=== PATIENT | male | born 1945 | race Caucasian/White ===

== ENCOUNTER → 2020-11-03 | Outpatient (CLI) | payer OTHER ==
--- NOTE | 2020-11-05 02:22 | ECWPNPC ---
PATIENT NAME: KAYLIN GARNER : 1945 GENDER: MALE VISIT DATE: 11/03/2020 DISCHARGE DATE: 11/03/20 09 VISIT LOCKED DATE TIME: PHYSICIAN: TOOTIE CHRISTINE RESOURCE: TOOTIE CHRISTINE REASON FOR APPOINTMENT 1. W/C LOW BACK HISTORY OF PRESENT ILLNESS GENERAL: - 75-YEAR-OLD MALE IN FOR WORKER'S COMP. CHRONIC PAIN FOLLOW-UP. PATIENT RATES HIS PAIN CURRENTLY AT A 3 OUT OF 10 AND DESCRIBES IT ACHING. HE FEELS MEDICATIONS ARE HELPFUL THEY AID IN DECREASED PAIN AND INCREASED FUNCTIONALITY AND DENIES MED SIDE EFFECTS AT THIS TIME. THE PATIENT WAS HURT IN A WORK RELATED INJURY ON 08/12/1999 WHILE WORKING AT [employer]. HE TRIPPED OVER A BOARD AND FELL DOWN STAIRS, WHICH RESULTED IN A BACK INJURY. FALL RISK SCREENING: SCREENING : NO FALLS REPORTED IN THE LAST YEAR. PAIN SCREENING: PATIENT HAS A COMPLAINT OF ACUTE OR CHRONIC PAIN :YES LOCATION OF PAIN:LOW BACK INTENSITY OF PAIN (SCALE OF 1 TO 10):3 WHAT DOES YOUR PAIN FEEL LIKE:ACHING DURATION:INTERMITTENT PAIN IS INCREASED BY:ACTIVITIES PAIN IS DECREASED BY:USE OF PAIN MEDICATIONS NURSING NOTE: -. PAIN CENTER INTAKE QUESTIONS: DO YOU HAVE A HISTORY OF MRSA? :NO DO YOU TAKE A BLOOD THINNERS? :NO DO YOU HAVE ANY BLEEDING DISORDERS? :NO ANY NEW NUMBNESS OR WEAKNESS IN YOUR LEGS OR ARMS? :NO ANY PACEMAKER,DEFIBRILLATOR, OR DORSAL COLUMN STIMULATOR? :NO DO YOU HAVE ANY RASHES OR OPEN SORES? :NO ARE YOU ALLERGIC TO IV DYE? :NO ARE YOU DIABETIC? :YES ANY NEW PROBLEMS WITH YOUR MEDICATIONS? :NO HAVE YOU RECEIVED A VACCINE IN THE PAST 30 DAYS? :NO DO YOU PLAN TO RECEIVE A VACCINE IN THE NEXT 21 DAYS? :NO DO YOU NEED ANY PRESCRIPTION? :YES HYDROCODONE DO YOU TAKE ANY IMMUNOSUPPRESSIVE MEDICATIONS? :NO DO YOU HAVE ANY KIDNEY OR LIVER DISEASE? :NO IS THERE A CHANCE YOU COULD BE ? :NO ARE YOU BREAST FEEDING? :NO CURRENT MEDICATIONS TAKING TIZANIDINE HCL 2 MG TABLET 1 TABLET NEEDED ORALLY TWO TIMES PRN TAKING HYDROCODONE-ACETAMINOPHEN 7.5-325 MG TABLET 1 TABLET NEEDED ORALLY EVERY 8 HOURS NEEDED MDD3 UNKNOWN SIMVASTATIN 20 MG TABLET 1 TABLET IN THE EVENING ORALLY ONCE A DAY, NOTES: 08/08 1929 UNKNOWN POTASSIUM CHLORIDE 10 MEQ CAPSULE EXTENDED RELEASE 1 CAPSULE WITH FOOD ORALLY ONCE A DAY, NOTES: 08/09 729 UNKNOWN NOVOLIN 70/30 (70-30) 100 UNIT/ML SUSPENSION SUBCUTANEOUS 30 UNITS- AM 20UNITS-PM, NOTES: 20 UNITS 08/08 1929 UNKNOWN METFORMIN HCL 500 MG TABLET 1 TABLET WITH A MEAL ORALLY TWICE DAILY, NOTES: 08/08 1929 UNKNOWN ALLOPURINOL 100 MG TABLET 1 TABLET ORALLY ONCE A DAY, NOTES: 08/03/20 UNKNOWN LABETALOL HCL 200 MG TABLET 1 TABLET ORALLY TWICE A DAY, NOTES: 08/09 729 UNKNOWN LOSARTAN POTASSIUM-HCTZ 100-12.5 MG TABLET 1 TABLET ORALLY ONCE A DAY UNKNOWN ASPIRIN 81 81 MG TABLET CHEWABLE 1 TABLET ORALLY ONCE A DAY UNKNOWN FAMOTIDINE 20 MG TABLET 1 TAB ORALLY ONCE A DAY UNKNOWN LORATADINE 10 MG TABLET 1 TABLET ORALLY ONCE A DAY UNKNOWN FISH OIL OMEGA-3 1000 MG CAPSULE 1 CAPSULE ORALLY ONCE A DAY UNKNOWN D3 VITAMIN _ LIQUID 400 UNITS 1 GEL CAP ORALLY BID UNKNOWN [id number] - TABLET 1 TAB ORALLY DAILY MEDICATION LIST REVIEWED AND RECONCILED WITH THE PATIENT PAST MEDICAL HISTORY A[facility]D HTN DIABETES HYPERLIPIDEMIA CHRONIC PAIN ALLERGIES DUST MITE MIXED ALLERGEN EXT: SNEEZING, SINUS CONGESTION - ALLERGY SOCIAL HISTORY GENERAL: TOBACCO USE ARE YOU A:USES TOBACCO IN OTHER FORMS ADDITIONAL FINDINGS: TOBACCO USERCHEWS FINE CUT TOBACCO VAPORNO E-CIGARETTENO SMOKING CESSATION INFORMATION GIVEN08/23/2020 LATEX QUESTIONNAIRE LATEX ALLERGY : HAVE YOU EVER DEVELOPED ANY TYPE OF REACTION AFTER HANDLING LATEX PRODUCTS SUCH RUBBER GLOVES, CONDOMS, DIAPHRAGMS, BALLOONS, SOCKS, OR UNDERWEAR?NO LATEX ALLERGY : HAVE YOU EVER DEVELOPED ANY TYPE OF REACTION DURING OR AFTER DENTAL APPOINTMENT, VAGINAL/RECTAL EXAMINATION, SURGICAL PROCEDURE, OR ANY OTHER EXPOSURE?NO DATE ASKED : 08/23/2020 LATEX RISK : HAVE YOU EVER HAD ANY DIFFICULTY BREATHING OR HIVES AFTER EATING OR HANDLING ANY FRUITS, OR VEGETABLES; SUCH KIWI, BANANAS, STONE FRUITS, OR CHESTNUTSNO LATEX RISK : DO YOU HAVE A PREVIOUS PERSONAL HISTORY OF MORE THAN NINE SURGERIES, SPINA BIFIDA, OR REPEATED CATHERIZATIONS? NO LATEX RISK : ARE YOU FREQUENTLY EXPOSED TO LATEX PRODUCTS IN YOUR OCCUPATION?NO ALCOHOL SCREENING DID YOU HAVE A DRINK CONTAINING ALCOHOL IN THE PAST YEAR?NO POINTS0 INTERPRETATIONNEGATIVE RECREATIONAL DRUG USE DRUG USE?NO CAFFEINE CAFFEINE USE?YES HOW OFTEN AND HOW MUCH? 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 DIET: NO CONCENTRATED SWEETS., REGULAR. EXERCISE: WALKS. MARITAL STATUS: . - HAS THE PATIENT BEEN EDUCATED REGARDING HIS/HER PLAN OF CARE?YES HAS THE PATIENT BEEN EDUCATED REGARDING PAIN, THE RISK FOR PAIN, THE IMPORTANCE OF EFFECTIVE PAIN MANAGEMENT, AND THE PAIN ASSESSMENT PROCESS?YES ADVANCE DIRECTIVE ADVANCE DIRECTIVE DISCUSSED WITH PATIENT:YES HCP IS DESMOND GARNER. [phone] REVIEW OF SYSTEMS CONSTITUTIONAL: ANY RECENT FEVER NO . CHILLS NO . WEIGHT CHANGE OF UNKNOWN REASONS NO . GASTROENTEROLOGY: NEW UNEXPLAINABLE CHANGES IN BOWEL CONTROL NO . CONSTIPATION NO . GENITOURINARY: ANY NEW CHANGE IN BLADDER CONTROL? NO . NEUROLOGY: NEW ONSET DIZZINESS OR NEUROLOGICAL CHANGES NOT MENTIONED NO . NEW NUMBNESS OR PAIN PATTERNS NOT MENTIONED AND PERTINENT TO TODAY'S VISIT NO . CARDIOLOGY: NEW CHEST PRESSURE NO . PATIENT DENIES NO . RESPIRATORY: UNEXPLAINABLE COUGH NO . NEW SHORTNESS OF BREATH NO . VITAL SIGNS WT 228 LBS, HT 68 IN, BMI 34.66 INDEX, BP 159/68 MM HG, HR 65 /MIN, RR 18 /MIN, TEMP 98.2 F, OXYGEN SAT % 96, SAFE IN ENV? (Y/N) Y, REVIEWED BY: EM. EXAMINATION GENERAL EXAMINATION: GENERALNO ACUTE DISTRESS, WELL NOURISHED AND HYDRATED. PSYCHAPPROPRIATE MOOD AND AFFECT . LUNGS:CLEAR TO AUSCULTATION BILATERALLY, NO WHEEZES, RHONCHI, RALES. HEART:NO MURMURS, REGULAR RATE AND RHYTHM. ASSESSMENTS SPONDYLOSIS WITHOUT MYELOPATHY OR RADICULOPATHY, LUMBAR REGION - M47.816 (PRIMARY), RISK: (NULL) TREATMENT SPONDYLOSIS WITHOUT MYELOPATHY OR RADICULOPATHY, LUMBAR REGION CONTINUE TIZANIDINE HCL TABLET, 2 MG, 1 TABLET NEEDED, ORALLY, TWO TIMES PRN, 30 DAY(S), 60 REFILL HYDROCODONE-ACETAMINOPHEN TABLET, 7.5-325 MG, 1 TABLET NEEDED, ORALLY, EVERY 8 HOURS NEEDED MDD3, 30 DAY(S), 90, REFILLS 0 NOTES: 75-YEAR-OLD MALE IN FOR WORKER'S COMP. CHRONIC PAIN FOLLOW-UP. GIVEN PRESENTING SYMPTOMS RECOMMENDED CONTINUATION OF CURRENT MEDICATION REGIMEN WITH FOLLOW-UP IN 2 MONTHS. PATIENT HAS EXPRESSED UNDERSTANDING OF AND WAS IN A AGREEMENT WITH TREATMENT PLAN. GIVEN TIME TO ASK QUESTIONS AND EXPRESS CONCERNS. , ISTOP REGISTRY REVIEWED AND DEMONSTRATES COMPLLIANCE. (REF # [id number] ) BRINGS IN MEDICATIONS WHICH IS APPROPRIATE FOR WHAT WAS DISPENSED. RECENT URINE TOXICOLOGY REVIEWED. NO UNAUTHORIZED MEDICATIONS. NO ILLICIT SUBSTANCES AND PRESCRIBED MEDICATIONS WERE PRESENT. PROCEDURES PN WORKMANS' COMP OPINION IN YOUR OPINION, WAS THE INCIDENT THAT THE PATIENT DESCRIBED THE COMPETENT MEDICAL CAUSE OF THIS INJURY/ILLNESS? YES ARE THE PATIENT'S COMPLAINTS CONSISTENT WITH HIS/HER HISTORY OF THE INJURY/ILLNESS? YES IS THE PATIENT'S HISTORY OF THE INJURY/ILLNESS CONSISTENT WITH YOUR OBJECTIVE FINDING? YES WHAT IS THE PERCENTAGE OF TEMPORARY IMPAIRMENT? MODERATE TO MARKED = 66.7% IS THE PATIENT WORKING? NO DOCTOR ON SITE: DAJUAN ROSADO MD PROCEDURE CODES FA211 ESTABILISHED PATIENT [facility] CHARGE DISPOSITION & COMMUNICATION FOLLOW UP 2 MONTHS (REASON: W/C LOW BACK PAIN ) ELECTRONICALLY SIGNED BY REID BECKER ON 11/04/2020 AT 08:41 AM EDT DISCLAIMER : THIS IS A VISIT SUMMARY EXTRACTED FROM THE [employer] CHART. IT IS NOT A COPY OF THE [employer] PROGRESS NOTE. MTDD
== END ==
LOC: M PAIN 09:15
PROVIDERS: ATTEND Family Medicine
DX: M47.816 Spondylosis without myelopathy or radiculopathy, lumbar region (principal); G89.29 Other chronic pain; E11.9 Type 2 diabetes mellitus without complications; F17.220 Nicotine dependence, chewing tobacco, uncomplicated; Z79.899 Other long term (current) drug therapy

== ENCOUNTER → 2020-12-31 | Outpatient (CLI) | payer OTHER ==
--- NOTE | 2021-01-05 03:08 | ECWPNPC ---
PATIENT NAME: KAYLIN GARNER : 1945 GENDER: MALE VISIT DATE: 12/31/2020 DISCHARGE DATE: 12/31/20 1049 VISIT LOCKED DATE TIME: PHYSICIAN: TOOTIE CHRISTINE RESOURCE: TOOTIE CHRISTINE REASON FOR APPOINTMENT 1. W/C LOW BACK HISTORY OF PRESENT ILLNESS GENERAL: HPI 75-YEAR-OLD MALE IN FOR WORKER'S COMP. CHRONIC PAIN FOLLOW-UP. HE RATES HIS PAIN CURRENTLY AT AN 8 OUT OF 10 AND DESCRIBES IT ACHING, AND INTERMITTENT. HE FEELS MEDICATIONS ARE HELPFUL AND DENIES MED SIDE EFFECTS AT THIS TIME. MEDICATIONS ARE HELPFUL BECAUSE THEY DECREASE HIS PAIN AND INCREASE HIS FUNCTIONALITY. DOI: 08/12/1999. -. FALL RISK SCREENING: SCREENING : NO FALLS REPORTED IN THE LAST YEAR. PAIN SCREENING: PATIENT HAS A COMPLAINT OF ACUTE OR CHRONIC PAIN :YES LOCATION OF PAIN:LOW BACK, LEFT HIP, RIGHT HIP INTENSITY OF PAIN (SCALE OF 1 TO 10):8 WHAT DOES YOUR PAIN FEEL LIKE:ACHING, INTERMITTENT DURATION:INTERMITTENT PAIN IS INCREASED BY:ACTIVITIES, PROLONGED STANDING PAIN IS DECREASED BY:USE OF PAIN MEDICATIONS, SITTING NURSING NOTE: -. PAIN CENTER INTAKE QUESTIONS: DO YOU HAVE A HISTORY OF MRSA? :NO DO YOU TAKE A BLOOD THINNERS? :NO DO YOU HAVE ANY BLEEDING DISORDERS? :NO ANY NEW NUMBNESS OR WEAKNESS IN YOUR LEGS OR ARMS? :NO ANY PACEMAKER,DEFIBRILLATOR, OR DORSAL COLUMN STIMULATOR? :NO DO YOU HAVE ANY RASHES OR OPEN SORES? :YES SORES ON ARMS FROM GARDENING ARE YOU ALLERGIC TO IV DYE? :NO ARE YOU DIABETIC? :YES ANY NEW PROBLEMS WITH YOUR MEDICATIONS? :NO HAVE YOU RECEIVED A VACCINE IN THE PAST 30 DAYS? :NO DO YOU PLAN TO RECEIVE A VACCINE IN THE NEXT 21 DAYS? :NO DO YOU NEED ANY PRESCRIPTION? :YES HYDROCODONE DO YOU TAKE ANY IMMUNOSUPPRESSIVE MEDICATIONS? :YES ALLOPURINAL DO YOU HAVE ANY KIDNEY OR LIVER DISEASE? :NO IS THERE A CHANCE YOU COULD BE ? :NO ARE YOU BREAST FEEDING? :NO CURRENT MEDICATIONS TAKING HYDROCODONE-ACETAMINOPHEN 7.5-325 MG TABLET 1 TABLET NEEDED ORALLY EVERY 8 HOURS NEEDED MDD3 TAKING TIZANIDINE HCL 2 MG TABLET 1 TABLET NEEDED ORALLY TWO TIMES PRN TAKING SIMVASTATIN 20 MG TABLET 1 TABLET IN THE EVENING ORALLY ONCE A DAY TAKING POTASSIUM CHLORIDE 10 MEQ CAPSULE EXTENDED RELEASE 1 CAPSULE WITH FOOD ORALLY ONCE A DAY TAKING NOVOLIN 70/30 (70-30) 100 UNIT/ML SUSPENSION SUBCUTANEOUS 30 UNITS- AM 20UNITS-PM TAKING METFORMIN HCL 500 MG TABLET 1 TABLET WITH A MEAL ORALLY TWICE DAILY TAKING ALLOPURINOL 100 MG TABLET 1 TABLET ORALLY ONCE A DAY TAKING LABETALOL HCL 200 MG TABLET 1 TABLET ORALLY TWICE A DAY TAKING LOSARTAN POTASSIUM-HCTZ 100-12.5 MG TABLET 1 TABLET ORALLY ONCE A DAY TAKING ASPIRIN 81 81 MG TABLET CHEWABLE 1 TABLET ORALLY ONCE A DAY TAKING FAMOTIDINE 20 MG TABLET 1 TAB ORALLY ONCE A DAY TAKING LORATADINE 10 MG TABLET 1 TABLET ORALLY ONCE A DAY TAKING FISH OIL OMEGA-3 1000 MG CAPSULE 1 CAPSULE ORALLY ONCE A DAY TAKING D3 VITAMIN _ LIQUID 400 UNITS 1 GEL CAP ORALLY BID TAKING [id number] - TABLET 1 TAB ORALLY DAILY MEDICATION LIST REVIEWED AND RECONCILED WITH THE PATIENT PAST MEDICAL HISTORY ASHD HTN DIABETES HYPERLIPIDEMIA CHRONIC PAIN ALLERGIES DUST MITE MIXED ALLERGEN EXT: SNEEZING, SINUS CONGESTION - ALLERGY SOCIAL HISTORY GENERAL: TOBACCO USE ARE YOU A:USES TOBACCO IN OTHER FORMS ADDITIONAL FINDINGS: TOBACCO USERCHEWS FINE CUT TOBACCO SMOKING CESSATION INFORMATION GIVEN12/31/2020 VAPORNO E-CIGARETTENO LATEX QUESTIONNAIRE LATEX ALLERGY : HAVE YOU EVER DEVELOPED ANY TYPE OF REACTION AFTER HANDLING LATEX PRODUCTS SUCH RUBBER GLOVES, CONDOMS, DIAPHRAGMS, BALLOONS, SOCKS, OR UNDERWEAR?NO LATEX ALLERGY : HAVE YOU EVER DEVELOPED ANY TYPE OF REACTION DURING OR AFTER DENTAL APPOINTMENT, VAGINAL/RECTAL EXAMINATION, SURGICAL PROCEDURE, OR ANY OTHER EXPOSURE?NO LATEX RISK : HAVE YOU EVER HAD ANY DIFFICULTY BREATHING OR HIVES AFTER EATING OR HANDLING ANY FRUITS, OR VEGETABLES; SUCH KIWI, BANANAS, STONE FRUITS, OR CHESTNUTSNO LATEX RISK : DO YOU HAVE A PREVIOUS PERSONAL HISTORY OF MORE THAN NINE SURGERIES, SPINA BIFIDA, OR REPEATED CATHERIZATIONS? NO LATEX RISK : ARE YOU FREQUENTLY EXPOSED TO LATEX PRODUCTS IN YOUR OCCUPATION?NO DATE ASKED : 12/31/2020 ALCOHOL USE: NO. ALCOHOL SCREENING DID YOU HAVE A DRINK CONTAINING ALCOHOL IN THE PAST YEAR?NO POINTS0 INTERPRETATIONNEGATIVE RECREATIONAL DRUG USE DRUG USE?NO CAFFEINE CAFFEINE USE?YES HOW OFTEN AND HOW MUCH? 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 DIET: NO CONCENTRATED SWEETS., REGULAR. EXERCISE: WALKS. MARITAL STATUS: . - HAS THE PATIENT BEEN EDUCATED REGARDING HIS/HER PLAN OF CARE?YES HAS THE PATIENT BEEN EDUCATED REGARDING PAIN, THE RISK FOR PAIN, THE IMPORTANCE OF EFFECTIVE PAIN MANAGEMENT, AND THE PAIN ASSESSMENT PROCESS?YES ADVANCE DIRECTIVE ADVANCE DIRECTIVE DISCUSSED WITH PATIENT:YES HCP IS DESMOND GARNER. [phone] REVIEW OF SYSTEMS CONSTITUTIONAL: ANY RECENT FEVER NO . CHILLS NO . WEIGHT CHANGE OF UNKNOWN REASONS NO . GASTROENTEROLOGY: NEW UNEXPLAINABLE CHANGES IN BOWEL CONTROL NO . CONSTIPATION NO . GENITOURINARY: ANY NEW CHANGE IN BLADDER CONTROL? NO . NEUROLOGY: NEW ONSET DIZZINESS OR NEUROLOGICAL CHANGES NOT MENTIONED NO . NEW NUMBNESS OR PAIN PATTERNS NOT MENTIONED AND PERTINENT TO TODAY'S VISIT NO . CARDIOLOGY: NEW CHEST PRESSURE NO . PATIENT DENIES NO . RESPIRATORY: UNEXPLAINABLE COUGH NO . NEW SHORTNESS OF BREATH NO . VITAL SIGNS WT 229 LBS, HT 68 IN, BMI 34.82 INDEX, BP 225/97 MM HG, REPEAT BP 178/84 MANUAL LEFT ARM, HR 60 /MIN, RR 18 /MIN, TEMP 98.4 F, OXYGEN SAT % 96%, SAFE IN ENV? (Y/N) YES, REVIEWED BY: BAKARI BP RETAKEN LEFT ARM. PATIENT HAS TREMORS. PROVIDER NOTIFIED OF BP. EDMUNDO BYRNE MA. EXAMINATION GENERAL EXAMINATION: GENERALNO ACUTE DISTRESS, WELL NOURISHED AND HYDRATED. PSYCHAPPROPRIATE MOOD AND AFFECT . LUNGS:CLEAR TO AUSCULTATION BILATERALLY, NO WHEEZES, RHONCHI, RALES. HEART:NO MURMURS, REGULAR RATE AND RHYTHM. ASSESSMENTS SPONDYLOSIS OF LUMBOSACRAL REGION WITHOUT MYELOPATHY OR RADICULOPATHY - M47.817 (PRIMARY) CHRONIC PRESCRIPTION OPIATE USE - Z79.891 TREATMENT SPONDYLOSIS OF LUMBOSACRAL REGION WITHOUT MYELOPATHY OR RADICULOPATHY [facility] CT SPINE, LUMBAR W/O [id number] NOTES: 75-YEAR-OLD MALE IN FOR WORKER'S COMP. CHRONIC PAIN FOLLOW-UP. GIVEN PRESENTING SYMPTOMS RECOMMEND GETTING AN UPDATED CT OF THE LUMBAR SPINE FOR FURTHER EVALUATION WITH FOLLOW-UP POST IMAGING. PATIENT HAS EXPRESSED UNDERSTANDING OF AND WAS IN AGREEMENT WITH TREATMENT PLAN. GIVEN TIME TO ASK QUESTIONS AND EXPRESS CONCERNS. ISTOP REGISTRY REVIEWED AND DEMONSTRATES COMPLLIANCE. (REF #[id number] ) BRINGS IN MEDICATIONS WHICH IS APPROPRIATE FOR WHAT WAS DISPENSED. RECENT URINE TOXICOLOGY REVIEWED. NO UNAUTHORIZED MEDICATIONS. NO ILLICIT SUBSTANCES AND PRESCRIBED MEDICATIONS WERE PRESENT. CHRONIC PRESCRIPTION OPIATE USE LAB: [facility] TEST [facility] KIERA SMITH 12/31/2020 10:30:34 AM > LD: HYDROCODONE/ACET 12/31/20 0700 OTHERS REFILL HYDROCODONE-ACETAMINOPHEN TABLET, 7.5-325 MG, 1 TABLET NEEDED, ORALLY, EVERY 8 HOURS NEEDED MDD3, 30 DAY(S), 90, REFILLS 0 PROCEDURES PN WORKMANS' COMP OPINION IN YOUR OPINION, WAS THE INCIDENT THAT THE PATIENT DESCRIBED THE COMPETENT MEDICAL CAUSE OF THIS INJURY/ILLNESS? YES ARE THE PATIENT'S COMPLAINTS CONSISTENT WITH HIS/HER HISTORY OF THE INJURY/ILLNESS? YES IS THE PATIENT'S HISTORY OF THE INJURY/ILLNESS CONSISTENT WITH YOUR OBJECTIVE FINDING? YES WHAT IS THE PERCENTAGE OF TEMPORARY IMPAIRMENT? MODERATE TO MARKED = 66.7% IS THE PATIENT WORKING? NO DOCTOR ON SITE: DAJUAN ROSADO MD PROCEDURE CODES FA211 ESTABILISHED PATIENT [facility] CHARGE DISPOSITION & COMMUNICATION FOLLOW UP POST IMAGING (REASON: CT OF LUMBAR SPINE WITHOUT CONTRAST) ELECTRONICALLY SIGNED BY REID BECKER ON 01/04/2021 AT 09:10 AM EDT DISCLAIMER : THIS IS A VISIT SUMMARY EXTRACTED FROM THE [employer] CHART. IT IS NOT A COPY OF THE [employer] PROGRESS NOTE. MTDD
== END ==
LOC: M PAIN 10:00
PROVIDERS: ATTEND Family Medicine
DX: M47.817 Spondylosis without myelopathy or radiculopathy, lumbosacral region (principal); G89.29 Other chronic pain; E11.9 Type 2 diabetes mellitus without complications; F17.220 Nicotine dependence, chewing tobacco, uncomplicated; Z79.4 Long term (current) use of insulin; Z79.82 Long term (current) use of aspirin; Z79.899 Other long term (current) drug therapy

== ENCOUNTER → 2021-03-03 | Outpatient (CLI) | payer OTHER ==
--- NOTE | 2021-03-05 03:23 | ECWPNPC ---
PATIENT NAME: KAYLIN GARNER : 1945 GENDER: MALE VISIT DATE: 03/03/2021 DISCHARGE DATE: 03/03/21 1111 VISIT LOCKED DATE TIME: PHYSICIAN: TOOTIE CHRISTINE RESOURCE: TOOTIE CHRISTINE REASON FOR APPOINTMENT 1. W/C LOW BACK HISTORY OF PRESENT ILLNESS GENERAL: HPI 75-YEAR-OLD MALE IN FOR WORKER'S COMP. CHRONIC PAIN FOLLOW-UP. HE RATES HIS PAIN CURRENTLY AT AN 9 OUT OF 10. HE FEELS MEDICATIONS ARE HELPFUL AND DENIES MED SIDE EFFECTS AT THIS TIME. MEDICATIONS ARE HELPFUL BECAUSE THEY DECREASE HIS PAIN AND INCREASE HIS FUNCTIONALITY. PATIENT HAS HAD THERAPEUTIC FACET BLOCKS IN THE PAST WITH GOOD RELIEF EVIDENCED BY DECREASED PAIN AND INCREASED FUNCTIONALITY. WE WILL DISCUSS REPEAT PROCEDURES TODAY.DOI: 08/12/1999. -. CURRENT MEDICATIONS TAKING TIZANIDINE HCL 2 MG TABLET 1 TABLET NEEDED ORALLY TWO TIMES PRN TAKING SIMVASTATIN 20 MG TABLET 1 TABLET IN THE EVENING ORALLY ONCE A DAY TAKING POTASSIUM CHLORIDE 10 MEQ CAPSULE EXTENDED RELEASE 1 CAPSULE WITH FOOD ORALLY ONCE A DAY TAKING NOVOLIN 70/30 (70-30) 100 UNIT/ML SUSPENSION SUBCUTANEOUS 30 UNITS- AM 20UNITS-PM TAKING METFORMIN HCL 500 MG TABLET 1 TABLET WITH A MEAL ORALLY TWICE DAILY TAKING ALLOPURINOL 100 MG TABLET 1 TABLET ORALLY ONCE A DAY TAKING LABETALOL HCL 200 MG TABLET 1 TABLET ORALLY TWICE A DAY TAKING LOSARTAN POTASSIUM-HCTZ 100-12.5 MG TABLET 1 TABLET ORALLY ONCE A DAY TAKING ASPIRIN 81 81 MG TABLET CHEWABLE 1 TABLET ORALLY ONCE A DAY TAKING FAMOTIDINE 20 MG TABLET 1 TAB ORALLY ONCE A DAY TAKING LORATADINE 10 MG TABLET 1 TABLET ORALLY ONCE A DAY TAKING FISH OIL OMEGA-3 1000 MG CAPSULE 1 CAPSULE ORALLY ONCE A DAY TAKING D3 VITAMIN _ LIQUID 400 UNITS 1 GEL CAP ORALLY BID TAKING [id number] - TABLET 1 TAB ORALLY DAILY TAKING HYDROCODONE-ACETAMINOPHEN 7.5-325 MG TABLET 1 TABLET NEEDED ORALLY EVERY 8 HOURS NEEDED MDD3 MEDICATION LIST REVIEWED AND RECONCILED WITH THE PATIENT PAST MEDICAL HISTORY A[facility]D HTN DIABETES HYPERLIPIDEMIA CHRONIC PAIN ALLERGIES DUST MITE MIXED ALLERGEN EXT: SNEEZING, SINUS CONGESTION - ALLERGY SURGICAL HISTORY APPENDECTOMY 1969 HERNIA REPAIR/MESH RIGHT GROIN 1971 HEART SURGERY-QUAD BYPASS 2009 SOCIAL HISTORY GENERAL: TOBACCO USE ARE YOU A:USES TOBACCO IN OTHER FORMS ADDITIONAL FINDINGS: TOBACCO USERCHEWS FINE CUT TOBACCO VAPORNO E-CIGARETTENO SMOKING CESSATION INFORMATION GIVEN12/31/2020 LATEX QUESTIONNAIRE LATEX ALLERGY : HAVE YOU EVER DEVELOPED ANY TYPE OF REACTION AFTER HANDLING LATEX PRODUCTS SUCH RUBBER GLOVES, CONDOMS, DIAPHRAGMS, BALLOONS, SOCKS, OR UNDERWEAR?NO LATEX ALLERGY : HAVE YOU EVER DEVELOPED ANY TYPE OF REACTION DURING OR AFTER DENTAL APPOINTMENT, VAGINAL/RECTAL EXAMINATION, SURGICAL PROCEDURE, OR ANY OTHER EXPOSURE?NO LATEX RISK : HAVE YOU EVER HAD ANY DIFFICULTY BREATHING OR HIVES AFTER EATING OR HANDLING ANY FRUITS, OR VEGETABLES; SUCH KIWI, BANANAS, STONE FRUITS, OR CHESTNUTSNO LATEX RISK : DO YOU HAVE A PREVIOUS PERSONAL HISTORY OF MORE THAN NINE SURGERIES, SPINA BIFIDA, OR REPEATED CATHERIZATIONS? NO LATEX RISK : ARE YOU FREQUENTLY EXPOSED TO LATEX PRODUCTS IN YOUR OCCUPATION?NO DATE ASKED : 03/03/2021 ALCOHOL USE: NO. ALCOHOL SCREENING DID YOU HAVE A DRINK CONTAINING ALCOHOL IN THE PAST YEAR?NO POINTS0 INTERPRETATIONNEGATIVE RECREATIONAL DRUG USE DRUG USE?NO CAFFEINE CAFFEINE USE?YES HOW OFTEN AND HOW MUCH? 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 DIET: NO CONCENTRATED SWEETS., REGULAR. EXERCISE: WALKS. MARITAL STATUS: . - HAS THE PATIENT BEEN EDUCATED REGARDING HIS/HER PLAN OF CARE?YES HAS THE PATIENT BEEN EDUCATED REGARDING PAIN, THE RISK FOR PAIN, THE IMPORTANCE OF EFFECTIVE PAIN MANAGEMENT, AND THE PAIN ASSESSMENT PROCESS?YES ADVANCE DIRECTIVE ADVANCE DIRECTIVE DISCUSSED WITH PATIENT:YES HCP IS DESMOND GARNER. [phone] HOSPITALIZATION/MAJOR DIAGNOSTIC PROCEDURE HYPERGLYCEMIA 2011 HYPOGLYCEMIA SURGERIES HTN REVIEW OF SYSTEMS CONSTITUTIONAL: ANY RECENT FEVER NO . CHILLS NO . WEIGHT CHANGE OF UNKNOWN REASONS NO . GASTROENTEROLOGY: NEW UNEXPLAINABLE CHANGES IN BOWEL CONTROL NO . CONSTIPATION NO . GENITOURINARY: ANY NEW CHANGE IN BLADDER CONTROL? NO . NEUROLOGY: NEW ONSET DIZZINESS OR NEUROLOGICAL CHANGES NOT MENTIONED NO . NEW NUMBNESS OR PAIN PATTERNS NOT MENTIONED AND PERTINENT TO TODAY'S VISIT NO . CARDIOLOGY: NEW CHEST PRESSURE NO . PATIENT DENIES NO . RESPIRATORY: UNEXPLAINABLE COUGH NO . NEW SHORTNESS OF BREATH NO . VITAL SIGNS WT 221.8 LBS, HT 68 IN, BMI 33.72 INDEX, BP 162/78 MANUAL, HR 68 /MIN, RR 18 /MIN, TEMP 98.9 F, OXYGEN SAT % 97%, SAFE IN ENV? (Y/N) YES, REVIEWED BY: JHPATIENT HAS TREMORS. MANUAL BP RETAKEN. EDMUNDO BYRNE MA. EXAMINATION GENERAL EXAMINATION: GENERALNO ACUTE DISTRESS, WELL NOURISHED AND HYDRATED. PSYCHAPPROPRIATE MOOD AND AFFECT . LUNGS:CLEAR TO AUSCULTATION BILATERALLY, NO WHEEZES, RHONCHI, RALES. HEART:NO MURMURS, REGULAR RATE AND RHYTHM. BACK:POINT TENDER ALONG LUMBAR SPINE PATIENT DOES ENDORSE INCREASED PAIN FACET LOADING. ASSESSMENTS SPONDYLOSIS OF LUMBOSACRAL REGION WITHOUT MYELOPATHY OR RADICULOPATHY - M47.817 (PRIMARY), RISK: (NULL) TREATMENT SPONDYLOSIS OF LUMBOSACRAL REGION WITHOUT MYELOPATHY OR RADICULOPATHY NOTES: 75-YEAR-OLD MALE IN FOR CHRONIC PAIN FOLLOW-UP. GIVEN PRESENTING SYMPTOMS AND RESULTS OF PHYSICAL EXAMINATION RECOMMEND BILATERAL THERAPEUTIC LUMBAR FACET BLOCKS L4-L5 L5-S1 WITH POSTPROCEDURAL FOLLOW-UP. PATIENT HAS EXPRESSED UNDERSTANDING OF AND WAS IN AGREEMENT WITH TREATMENT PLAN. GIVEN TIME TO ASK QUESTIONS AND EXPRESS CONCERNS. [employer] REVIEWED AND DEMONSTRATES COMPLLIANCE. (REF # [id number] ) BRINGS IN MEDICATIONS WHICH IS APPROPRIATE FOR WHAT WAS DISPENSED. RECENT URINE TOXICOLOGY REVIEWED. NO UNAUTHORIZED MEDICATIONS. NO ILLICIT SUBSTANCES AND PRESCRIBED MEDICATIONS WERE PRESENT. CLINICAL NOTES: PREPROCEDURE AND PROCEDURE INFORMATION PRINTED AND PROVIDED TO PATIENT. PATIENT VERBALIZED AN UNDERSTANDING. EDMUNDO BYRNE MA. PROCEDURE CODES [id number] ESTABILISHED PATIENT [facility] FACILITY CHARGE DISPOSITION & COMMUNICATION FOLLOW UP POST PROCEDURE (REASON: BILATERAL THERAPEUTIC LUMBAR FACET BLOCK L4-L5, L5-S1 WITH IV SEDATION) ELECTRONICALLY SIGNED BY REID BECKER ON 03/04/2021 AT 08:34 AM EDT DISCLAIMER : THIS IS A VISIT SUMMARY EXTRACTED FROM THE [employer] CHART. IT IS NOT A COPY OF THE [employer] PROGRESS NOTE. MTDD
== END ==
LOC: M PAIN 10:15
PROVIDERS: ATTEND Family Medicine
DX: M47.817 Spondylosis without myelopathy or radiculopathy, lumbosacral region (principal); G89.29 Other chronic pain; E11.9 Type 2 diabetes mellitus without complications; F17.220 Nicotine dependence, chewing tobacco, uncomplicated; Z91.038 Other insect allergy status; Z79.82 Long term (current) use of aspirin; Z79.84 Long term (current) use of oral hypoglycemic drugs; Z79.899 Other long term (current) drug therapy

== ENCOUNTER → 2021-03-23 | Outpatient (CLI) | payer OTHER | LOC: M LABSMTC 11:21 | PROVIDERS: ATTEND Anesthesiology | DX: Z20.828 Contact with and (suspected) exposure to other viral communicable diseases (principal); Z11.59 Encounter for screening for other viral diseases ==

== ENCOUNTER → 2021-03-28 | Outpatient (CLI) | payer OTHER ==
[~2021-03-28] MED LIST: BUPIVACAINE HCL 0.25% 30ML VIAL As Ordered ONE; ISOVUE-M 300 61% 15ML VIAL As Ordered ONE; LIDOCAINE 1% SDV 30ML VIAL As Ordered ONE; MIDAZOLAM INJ 2MG/2ML VIAL (J2250 PER 1MG) As Ordered ONE; TRIAMCINOLONE ACETONIDE SUSP 40 MG/ML VIAL (J3301) As Ordered ONE; diphenhydrAMINE 50MG/ML VIAL (J1200) As Ordered ONE; fentaNYL 100 MCG/2 ML INJECTION (J3010) As Ordered ONE
--- NOTE | 2021-03-28 12:45 | REP ---
INDICATION: BRAD LFBT. COMPARISON: None. TECHNIQUE: Two C-arm views lumbar spine. FINDINGS: Two needles are seen at the lower lumbar facet joints bilaterally. A small amount of contrast is injected. IMPRESSION: 29 seconds of fluoroscopy time is utilized. <Electronically signed by Waqas Peterson > 03/28/21 [id number]
--- NOTE | 2021-04-03 23:18 | ECWPNPC ---
PATIENT NAME: KAYLIN GARNER : 1945 GENDER: MALE VISIT DATE: 03/28/2021 DISCHARGE DATE: 03/28/21 1440 VISIT LOCKED DATE TIME: PHYSICIAN: DAJUAN NEWTON MD RESOURCE: DAJUAN NEWTON MD REASON FOR APPOINTMENT 1. BILATERAL THERAPEUTIC LUMBAR FACET BLOCK L4-L5, L5-S1 WITH IV SEDATION HISTORY OF PRESENT ILLNESS GENERAL: -. FALL RISK SCREENING: SCREENING : NO FALLS REPORTED IN THE LAST YEAR. PAIN SCREENING: PATIENT HAS A COMPLAINT OF ACUTE OR CHRONIC PAIN :YES LOCATION OF PAIN:LOW BACK INTENSITY OF PAIN (SCALE OF 1 TO 10):10 WHAT DOES YOUR PAIN FEEL LIKE:ACHING, TENDER LEG NUMBNESS DURATION:CONTINOUS PAIN IS INCREASED BY:ACTIVITIES PAIN IS DECREASED BY:USE OF PAIN MEDICATIONS NURSING NOTE: PT HAS LOST HIS BALANCE, PT HAS ASKED DR BLAIR FOR REFERRAL TO NEUROLOGIST X 3, TO NO AVAIL, PT ASKING FOR REFERRAL TO NEUROLOGIST. PAIN CENTER INTAKE QUESTIONS: DO YOU HAVE A HISTORY OF MRSA? :NO DO YOU TAKE A BLOOD THINNERS? :NO DO YOU HAVE ANY BLEEDING DISORDERS? :NO ANY NEW NUMBNESS OR WEAKNESS IN YOUR LEGS OR ARMS? :YES LEG NUMBNESS ANY PACEMAKER,DEFIBRILLATOR, OR DORSAL COLUMN STIMULATOR? :NO DO YOU HAVE ANY RASHES OR OPEN SORES? :NO ARE YOU ALLERGIC TO IV DYE? :NO ARE YOU DIABETIC? :YES ANY NEW PROBLEMS WITH YOUR MEDICATIONS? :NO HAVE YOU RECEIVED A VACCINE IN THE PAST 30 DAYS? :NO DO YOU PLAN TO RECEIVE A VACCINE IN THE NEXT 21 DAYS? :NO DO YOU TAKE ANY IMMUNOSUPPRESSIVE MEDICATIONS? :NO ANY HISTORY OF SEIZURES? :NO ANY HISTORY OF CARDIAC ISSUES OR EVENTS? :YES QUADRUPLE BIPASS 2009 DO YOU HAVE ANY KIDNEY OR LIVER DISEASE? :NO DO YOU HAVE SLEEP APNEA? :NO ANY RECENT HEAD INJURY? :NO DO YOU HAVE ANY NEW INFECTIONS? :NO IS THERE A CHANCE YOU COULD BE ? :NO ARE YOU BREAST FEEDING? :NO WHEN DID YOU LAST EAT? : 03/27/21 WHEN DID YOU LAST DRINK? : 03/28/21 0900 WHAT DID YOU LAST DRINK? : SPRITE NAME OF PERSON DRIVING YOU HOME? : DESMOND DO YOU HAVE ANY OTHER QUESTIONS OR CONCERNS? : - CURRENT MEDICATIONS TAKING SIMVASTATIN 20 MG TABLET 1 TABLET IN THE EVENING ORALLY ONCE A DAY TAKING POTASSIUM CHLORIDE 10 MEQ CAPSULE EXTENDED RELEASE 1 CAPSULE WITH FOOD ORALLY ONCE A DAY TAKING NOVOLIN 70/30 (70-30) 100 UNIT/ML SUSPENSION SUBCUTANEOUS 30 UNITS- AM 20UNITS-PM, NOTES: 03/27/21 TAKING METFORMIN HCL 500 MG TABLET 1 TABLET WITH A MEAL ORALLY TWICE DAILY, NOTES: 03/27/21 TAKING ALLOPURINOL 100 MG TABLET 1 TABLET ORALLY ONCE A DAY, NOTES: 03/25/21 TAKING LABETALOL HCL 200 MG TABLET 1 TABLET ORALLY TWICE A DAY, NOTES: 03/28/21 TAKING LOSARTAN POTASSIUM-HCTZ 100-12.5 MG TABLET 1 TABLET ORALLY ONCE A DAY TAKING ASPIRIN 81 81 MG TABLET CHEWABLE 1 TABLET ORALLY ONCE A DAY TAKING FAMOTIDINE 20 MG TABLET 1 TAB ORALLY ONCE A DAY TAKING LORATADINE 10 MG TABLET 1 TABLET ORALLY ONCE A DAY TAKING FISH OIL OMEGA-3 1000 MG CAPSULE 1 CAPSULE ORALLY ONCE A DAY TAKING D3 VITAMIN _ LIQUID 400 UNITS 1 GEL CAP ORALLY BID TAKING [id number] - TABLET 1 TAB ORALLY DAILY TAKING HYDROCODONE-ACETAMINOPHEN 7.5-325 MG TABLET 1 TABLET NEEDED ORALLY EVERY 8 HOURS NEEDED MDD3, NOTES: 03/27/21 TAKING TIZANIDINE HCL 2 MG TABLET 1 TABLET NEEDED ORALLY TWO TIMES PRN, NOTES: 03/27/21 MEDICATION LIST REVIEWED AND RECONCILED WITH THE PATIENT PAST MEDICAL HISTORY ASHD HTN DIABETES HYPERLIPIDEMIA CHRONIC PAIN ALLERGIES DUST MITE MIXED ALLERGEN EXT: SNEEZING, SINUS CONGESTION - ALLERGY SURGICAL HISTORY APPENDECTOMY 1969 HERNIA REPAIR/MESH RIGHT GROIN 1971 HEART SURGERY-QUAD BYPASS 2009 SOCIAL HISTORY GENERAL: TOBACCO USE ARE YOU A:USES TOBACCO IN OTHER FORMS ADDITIONAL FINDINGS: TOBACCO USERCHEWS FINE CUT TOBACCO SMOKING CESSATION INFORMATION GIVEN12/31/2020 VAPORNO E-CIGARETTENO LATEX QUESTIONNAIRE LATEX ALLERGY : HAVE YOU EVER DEVELOPED ANY TYPE OF REACTION AFTER HANDLING LATEX PRODUCTS SUCH RUBBER GLOVES, CONDOMS, DIAPHRAGMS, BALLOONS, SOCKS, OR UNDERWEAR?NO LATEX ALLERGY : HAVE YOU EVER DEVELOPED ANY TYPE OF REACTION DURING OR AFTER DENTAL APPOINTMENT, VAGINAL/RECTAL EXAMINATION, SURGICAL PROCEDURE, OR ANY OTHER EXPOSURE?NO LATEX RISK : HAVE YOU EVER HAD ANY DIFFICULTY BREATHING OR HIVES AFTER EATING OR HANDLING ANY FRUITS, OR VEGETABLES; SUCH KIWI, BANANAS, STONE FRUITS, OR CHESTNUTSNO LATEX RISK : DO YOU HAVE A PREVIOUS PERSONAL HISTORY OF MORE THAN NINE SURGERIES, SPINA BIFIDA, OR REPEATED CATHERIZATIONS? NO LATEX RISK : ARE YOU FREQUENTLY EXPOSED TO LATEX PRODUCTS IN YOUR OCCUPATION?NO DATE ASKED : 03/03/2021 ALCOHOL USE: NO. ALCOHOL SCREENING DID YOU HAVE A DRINK CONTAINING ALCOHOL IN THE PAST YEAR?NO POINTS0 INTERPRETATIONNEGATIVE RECREATIONAL DRUG USE DRUG USE?NO CAFFEINE CAFFEINE USE?YES HOW OFTEN AND HOW MUCH? 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 DOES NOT HAVE HEARING AIDS : NO HEARING AIDS VISION IMPAIRED?YES :CORRECTIVE LENSES COGNITIVELY IMPAIRED?NO READINESS TO LEARN?YES LEARNING PREFERENCES?YES :DEMONSTRATION/VERBAL INSTRUCTION LEARNING CAPABILITIES PRESENT?YES EMOTIONAL BARRIERS?NO SPECIAL DEVICES?YES :CANE OCCASSIONALLY DIRECTOR ORGANIZATIONAL NEEDED?NO DOMESTIC VIOLENCE DO YOU FEEL SAFE IN YOUR ENVIRONMENT?YES OCCUPATION: RETIRED. DIET: NO CONCENTRATED SWEETS., REGULAR. EXERCISE: WALKS. MARITAL STATUS: . - HAS THE PATIENT BEEN EDUCATED REGARDING HIS/HER PLAN OF CARE?YES HAS THE PATIENT BEEN EDUCATED REGARDING PAIN, THE RISK FOR PAIN, THE IMPORTANCE OF EFFECTIVE PAIN MANAGEMENT, AND THE PAIN ASSESSMENT PROCESS?YES ADVANCE DIRECTIVE ADVANCE DIRECTIVE DISCUSSED WITH PATIENT:YES HCP IS DESMOND GARNER. 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 EM. EXAMINATION GENERAL: A HISTORY AND PHYSICAL EXAM ON THE PATIENT WAS DONE ON 03/03/2021(DATE OF ORIGINAL ASSESSMENT) IN PREPARATION OF SURGERY/PROCEDURE. I HAVE NOW REASSESSED THIS PATIENT'S HEALTH STATUS AND PERFORMED AN UPDATED EXAM TODAY. ALL CHANGES IN THE PATIENT'S HISTORY, PHYSICAL EXAM, PRE-EXISTING CONDITONS, AND INDICATIONS/CONTRAINDICATIONS TO THE PLANNED PROCEDURE AND ANESTHESIA ARE DOCUMENTED AND EVALUATED BELOW. I ATTEST TO THE ADEQUACY AND APPROPRIATENESS OF MY ASSESSMENT, AND CONFIRM THE NECESSITY FOR THE PLANNED PROCEDURE. THE PATIENT IS ALERT, ORIENTED TIMES THREE AND COOPERATIVE. LUNGS ARE CLEAR TO AUSCULTATION. HEART SHOWS REGULAR RHYTHM, NO MURMURS AND NO GALLOPS. ASA CLASS- IIAIRWAY CLASS- II. ASSESSMENTS SPONDYLOSIS WITHOUT MYELOPATHY OR RADICULOPATHY, LUMBAR REGION - M47.816 (PRIMARY) SPONDYLOSIS WITHOUT MYELOPATHY OR RADICULOPATHY, LUMBOSACRAL REGION - M47.817 TREATMENT SPONDYLOSIS WITHOUT MYELOPATHY OR RADICULOPATHY, LUMBAR REGION MEDICATION: PAIN FENTANYL CITRATE 25MCG [id number] ELLIS 03/28/2021 11:23:18 AM > VERIFIED CHIARA WICK 03/28/2021 12:10:59 PM > SECOND DOSE ORDERED, VERIFIED BY CHIARA UP 03/28/2021 12:14:03 PM > THIRD DOSE ORDERED, VERIFIED BY JOE MAGALLON 03/28/2021 12:27:17 PM > FIRST DOSE GIVEN AT 1208. SECOND DOSE GIVEN AT 1209. THIRD DOSE GIVEN AT 1213. TOTAL OF 75 MCG FENTANTLY ADMINISTERED TOTAL. MED: PAIN VERSED 1MG IV [id number],ELIZABETH 03/28/2021 11:23:30 AM > VERIFIED JOE GONZALEZ 03/28/2021 12:26:21 PM > FIRST DOSE GIVEN AT 1207. TOTAL OF 1MG VERSED ADMINISTERED OXYGEN AT 2 LITERS PER NASAL [id number],ELIZABETH 03/28/2021 1:13:08 PM > O2 APPLIED @ 1155 AND DISCONTINUED @ 1230 IV LACTATED RINGER'S AT [id number],ABIGAIL R 03/28/2021 11:41:25 AM > INITIATED AT THIS TIME JOE GONZALEZ 03/28/2021 11:41:58 AM > 22G INSERTED INTO LEFT AC ON 2ND ATTEMPT, POSITIVE FLASH AND BLOOD RETURN, INFUSING WELL DANNY ELLIS 03/28/2021 1:59:40 PM > 400CC INFUSED COMPLETION OF PROCEDURAL VISIT WHEN MEETS [id number],ELIZABETH 03/28/2021 5:37:16 PM > CRITERIA MET @ 230 MED: PAIN BENADRYL 25MG IV [id number],ELIZABETH 03/28/2021 11:23:47 AM > VERIFIED GIARALPH WHITLEYJOE R 03/28/2021 11:39:58 AM > ADMINSTERED SPONDYLOSIS WITHOUT MYELOPATHY OR RADICULOPATHY, LUMBOSACRAL REGION SMC FACET BLOCK (PAIN)[id number] OTHERS NOTES: PAT DONE 03/24/21 EM. PROCEDURES PAIN NURSING RECORD PROCEDURE IN ROOM 1150, PHYSICIAN IN ROOM 1205, START 1212, FINISH 1219, PHYSICIAN OUT OF ROOM 1220, OUT OF ROOM 1230, ECG NORMAL SINUS ARRYTHMIA NOTED DURING PROCEDURE, POSSIBLE, PATIENT SHIELDED NO, SAFETY STRAP YES, PREP CHLOROPREP Charbel ELLIS RN, DRESSING TEGADERM DR. NEWTON LOC: 1. ALERT, ORIENTED, DANNY ELLIS 03/28/2021 12:18:27 PM > RESP: 1. REGULAR, NO DYSPNEA, DANNY ELLIS 03/28/2021 12:18:30 PM > COLOR: 1. PINK, DANNY ELLIS 03/28/2021 12:18:33 PM > SKIN: 1. WARM, DRY, DANNY ELLIS 03/28/2021 12:18:37 PM > POSITION: 1. PRONE, DANNY ELLIS 03/28/2021 12:18:42 PM > VITALS: 202/73, 54, 16, 99% DANNY ELLIS 03/28/2021 12:06:35 PM > 208/123, 58, 16, 99% DANNY ELLIS 03/28/2021 12:10:37 PM > , 172/77, 63, 16, 98% DANNY ELLIS 03/28/2021 12:15:11 PM > , 157/70, 56, 18, 96%, DANNY ELLIS 03/28/2021 12:20:13 PM > 157/70, 61, 97%, DANNY ELLIS 03/28/2021 12:25:54 PM > 181/81, 56, 16, 98%, DANNY ELLIS 03/28/2021 12:34:12 PM > 172/76, 55, 16, 97%, DANNY ELLIS 03/28/2021 12:40:37 PM > 179/79, 57, 16, 97%, DANNY ELLIS 03/28/2021 12:50:09 PM > 181/79, 61, 16, 98%, DANNY ELLIS 03/28/2021 1:00:35 PM > 170/78, 57, 16, 98%, DANNY ELLIS 03/28/2021 1:06:09 PM > 186/75, 58, 16, 97%, DANNY ELLIS 03/28/2021 1:12:27 PM > , LISA,JOE R 03/28/2021 1:36:32 PM > 191/78, 71, 18, 98% , GIAAS,JOE R 03/28/2021 1:41:10 PM >173/74, 57, 18, 98% , PETRAS,JOE R 03/28/2021 1:56:08 PM > 170/55, 57, 18, 97% 171/77, 58, 16, 96%, DANNY ELLIS 03/28/2021 1:58:43 PM > 170/55, 58, 16, 97% DANNY ELLIS 03/28/2021 2:10:11 PM > , 156/72, 60, 16, 97%, 97.9 DANNY ELLIS 03/28/2021 2:20:10 PM > NOTES Charbel ELLIS RN, Roni GONZALEZ RN, DANNY ELLIS 03/28/2021 12:19:20 PM > DURING PROCEDURE, PT HAD AN ARRYTHMIA X10 SECONDS, ARRYTHMIA WAS PRINTED AND MOUNTED. POST PROCEDURE, PT WAS BROUGHT TO RECOVERY BAY AND PLACED ON THE MONITOR, DR BLAIR'S OFFICE WAS CALLED, SERVICE LINE PICKED UP AND WE REQUESTED FOR DR BLAIR'S OFFICE TO CALL US BACK. WHILE MONITORING PT, MORE ARRYTHMIAS WERE NOTED AND PRINTED., DANNY ELLIS 03/28/2021 1:10:09 PM > , JOE GONZALEZ Ashish 03/28/2021 1:37:51 PM > SPOKE WITH NURSE AT DR. BLAIR'S OFFICE AND REPORTED THAT PATIENT HAD ABNORMAL EKG CHANGES DURING PROCEDURE AND DR. NEWTON WOULD LIKE TO KNOW IF THEY WOULD LIKE HIM TO SEE THEM TODAY OR PROCEED TO AN ER. THEY ASKED ME TO SEND OVER THE RYTHMN STRIP'S TO THEM VIA FAX AND THEY WOULD CALL US BACK SOON POSSIBLE. EKG STRIPS FAXED TO [phone]. SPOKE WITH DR BLAIR'S OFFICE, PER OFFICE STAFF DR BLAIR STATED THAT THE PT IS HAVING PVC'S AND HE CAN GO HOME AND CALL THE OFFICE FOR AN APPOINTMENT. INFORMED DR NEWTON OF THE ABOVE, OK TO D/C HOME. RHYTHM STRIPS SCANNED INTO CHART AND GIVEN TO PT., CALEBDANNY 03/28/2021 2:29:13 PM > COMPLETION OF PROCEDURE APPOINTMENT: POST PAIN 0, DRESSING SITE DRY AND INTACT, TEACHING COMPLETED, PATIENT ACKNOWLEDGES UNDERSTANDING YES PN WORKMANS' COMP OPINION IN YOUR OPINION, WAS THE INCIDENT THAT THE PATIENT DESCRIBED THE COMPETENT MEDICAL CAUSE OF THIS INJURY/ILLNESS? YES ARE THE PATIENT'S COMPLAINTS CONSISTENT WITH HIS/HER HISTORY OF THE INJURY/ILLNESS? YES IS THE PATIENT'S HISTORY OF THE INJURY/ILLNESS CONSISTENT WITH YOUR OBJECTIVE FINDING? YES WHAT IS THE PERCENTAGE OF TEMPORARY IMPAIRMENT? MODERATE TO MARKED = 66.7% IS THE PATIENT WORKING? NO DOCTOR ON SITE: MD NATALIIA LARRY LUMBAR FACET BLOCK THERAPEUTIC PRE PROCEDURE DIAGNOSIS LUMBAR SPONDYLOSIS, LUMBOSACRAL SPONDYLOSIS POST PROCEDURE DIAGNOSIS LUMBAR SPONDYLOSIS, LUMBOSACRAL SPONDYLOSIS PROCEDURE BILATERAL L4-L5 AND BILATERAL L5-S1 LUMBAR FACET THERAPEUTIC BLOCK SURGEON DR. DAJUAN NEWTON GATE OPERATOR NONE ANESTHESIA LOCAL WITH IV SEDATION PRE PROCEDURE NOTE THE PATIENT HAS A HISTORY OF CHRONIC LOW BACK PAIN. I EVALUATED THE PATIENT AND REVIEWED THE CHART. I WENT OVER THE RISKS, ALTERNATIVES, AND BENEFITS ASSOCIATED WITH THIS PROCEDURE. THE PATIENT WOULD LIKE TO PROCEED AND GIVES CONSENT TO PERFORM THE PROCEDURE. THE PATIENT WOULD LIKE TO MOVE FORWARD WITH IV SEDATION DUE TO ANXIETY AND DISCOMFORT ASSOCIATED WITH THE PROCEDURE. THE PATIENT DENIES UNEXPLAINABLE WEIGHT LOSS, FEVER, CHILLS, OR NEW CHANGES IN URINARY OR BOWEL CONTROL. THE PATIENT IS COVID-19 NEGATIVE DESCRIPTION OF PROCEDURE THE PATIENT WAS BROUGHT TO THE PROCEDURE ROOM AND PLACED IN THE PRONE POSITION. THE LUMBOSACRAL AREA WAS CLEANED WITH CHLORAPREP SOLUTION AND DRAPED ASEPTICALLY. THE PROCEDURE WAS DONE UNDER STERILE CONDITIONS. A TIMEOUT WAS PERFORMED WHERE THE CONSENTED SITE WAS VERIFIED WITH EVERYONE IN THE ROOM. UNDER FLUOROSCOPIC GUIDANCE, THE TARGET POINT WAS SELECTED AT THE RIGHT AND LEFT L4-L5 AND RIGHT AND LEFT L5-S1 FACET JOINTS. TARGET POINT WAS SELECTED AFTER LATERAL ROTATION AND TILT OF THE MAGNIFIER OF THE C-ARM. I CONFIRMED AGAIN THE SITE OF TARGET. LIDOCAINE 0.5% WAS USED TO NUMB THE SKIN AND THE SUBCUTANEOUS TISSUE BELOW IT. SPINAL NEEDLES, 22-GAUGE, WERE ADVANCED UNDER FLUOROSCOPIC GUIDANCE AND FOLLOWING PATIENT FEEDBACK UNTIL THE TARGETS WERE TOUCHED. THE POSITION OF THE NEEDLES WAS VERIFIED WITH AP AND LATERAL VIEWS. AFTER PROPER POSITION OF THE NEEDLES WAS ACHIEVED, ISOVUE-M DYE 30%, 0.1 ML, WAS INJECTED SHOWING ADEQUATE SPREAD OF THE DYE. KENALOG 10 MG WAS INJECTED AT EACH SITE. THEN, A SOLUTION OF 1.0 ML OF BUPIVACAINE 0.125% OF WAS USED TO FLUSH EACH SITE. THE MEDICATION WAS VERIFIED WITH THE NURSE. THERE WAS NO EVIDENCE OF BLOOD, PARESTHESIA OR CEREBROSPINAL FLUID DURING THE PROCEDURE. THE PATIENT WAS SENT TO THE RECOVERY ROOM. THE PATIENT WAS MOVING THE EXTREMITIES AND DOING WELL. THERE WERE NO COMPLICATIONS DURING THE PROCEDURE. ESTIMATED BLOOD LOSS WAS LESS THAN 5 ML. FLUOROSCOPY TIME WAS 29 SECONDS. THE PATIENT RECEIVED VERSED 1 MG AND FENTANYL 75MCG IV IN DIVIDED DOSES. FACE TO FACE START TIME: 1207 FACE TO FACE END TIME: 1220 TOTAL FACE TO FACE TIME: 13 MINUTES. POST PROCEDURE NOTE THE PATIENT WILL BE SEEN IN A FOLLOW UP IN THE NEXT FEW WEEKS. I AM LOOKING FOR LONG LASTING RELIEF FOR THE PATIENT WITH THIS INTERVENTION. INSTRUCTIONS WERE GIVEN, QUESTIONS WERE ANSWERED, AND THE PATIENT EXPRESSED UNDERSTANDING AND AGREES WITH THE PLAN. I, CHIARA WICK, DOCUMENTED THE ABOVE INFORMATION ACTING A SCRIBE FOR DR. NEWTON. I HAVE REVIEWED THE ABOVE DOCUMENT, WRITTEN BY CHIARA WICK, MANAGEMENT PROFESSIONALS, AND I VERIFY THAT IT IS ACCURATE VISIT CODES PROCEDURE CODES 82814 INJ PARAVERT F JNT L/S 1 LEV, MODIFIERS: 50 [id number] INJ PARAVERT F JNT L/S 2 LEV, MODIFIERS: 50 [id number] MOD SED SAME PHYS/QHP 5/>YRS DISPOSITION & COMMUNICATION FOLLOW UP FOLLOW UP WITH CABLE ENGINEER (REASON: POST BILATERAL THERAPEUTIC LUMBAR FACET BLOCK L4-L5, L5-S1) ELECTRONICALLY SIGNED BY DAJUAN NEWTON MD, MD ON 04/03/2021 AT 09:13 PM EDT DISCLAIMER : THIS IS A VISIT SUMMARY EXTRACTED FROM THE [employer] CHART. IT IS NOT A COPY OF THE [employer] PROGRESS NOTE. MTDD
== END ==
LOC: M PAIN 11:00
PROVIDERS: ATTEND Anesthesiology
DX: M47.816 Spondylosis without myelopathy or radiculopathy, lumbar region (principal); M47.817 Spondylosis without myelopathy or radiculopathy, lumbosacral region; E11.9 Type 2 diabetes mellitus without complications; F17.220 Nicotine dependence, chewing tobacco, uncomplicated; Z79.4 Long term (current) use of insulin; Z79.82 Long term (current) use of aspirin; Z79.899 Other long term (current) drug therapy
CPT/HCPCS: 64493; 64494; 99152; J1200; J2250; J3010; J3301; Q9967

== ENCOUNTER → 2021-05-11 | Outpatient (CLI) | payer OTHER | LOC: M PAIN 11:45 | PROVIDERS: ATTEND Anesthesiology | DX: G89.29 Other chronic pain (principal); M47.816 Spondylosis without myelopathy or radiculopathy, lumbar region; R25.1 Tremor, unspecified; E11.9 Type 2 diabetes mellitus without complications; F17.220 Nicotine dependence, chewing tobacco, uncomplicated; Z79.4 Long term (current) use of insulin; Z79.82 Long term (current) use of aspirin; Z79.899 Other long term (current) drug therapy ==